=== PATIENT | female | born 1990 | race Asian ===

== ENCOUNTER 2021-08-08 08:14 | Outpatient (CLI) | payer OTHER ==
[2021-08-09 07:07] LABS: ESTRADIOL SERUM 20.6 pg/mL (.); LUTEINIZING HORMONE 10.2 mIU/mL (.)
== END 2021-08-08 21:53 | disposition home or self-care (01) ==
LOC: MLB 08:14
PROVIDERS: ATTEND Specialist
DX: N92.6 Irregular menstruation, unspecified (principal)
CPT/HCPCS: 36415; 82670; 83001; 83002

== ENCOUNTER 2021-12-26 08:07 | Outpatient (CLI) | payer OTHER | END 2021-12-26 20:00 | disposition home or self-care (01) | LOC: MLB 08:07 | PROVIDERS: ATTEND Specialist | DX: Z34.00 Encounter for supervision of normal first pregnancy, unspecified trimester (principal) | CPT/HCPCS: 36415; 86702; 86886; 86900; 86901 ==

== ENCOUNTER → 2022-03-17 | Outpatient (CLI) | payer OTHER ==
[2022-03-17 11:51] LABS: GLUCOSE,FASTING GESTATIONAL 82 mg/dL (70-110)
[2022-03-18 09:28] LABS: BASOPHILS % (AUTO) 0.3 % (0.0-2.0); EOSINOPHILS # (AUTO) 0.1 K/uL (0-0.4); EOSINOPHILS % (AUTO) 1.8 % (0.0-4.0); HEMATOCRIT 37.8 % (36-48); HEMOGLOBIN 13.1 g/dL (12.0-16.0); LYMPHOCYTES # (AUTO) 1.5 K/uL (2.5-16.5); LYMPHOCYTES % (AUTO) 19.2 % (20.5-51.1); MEAN CORPUSCULAR HEMOGLOBIN 31 pg (27-31); MEAN CORPUSCULAR HGB CONC 35 g/dL (33-37); MEAN CORPUSCULAR VOLUME 90.6 fL (80-94); MONOCYTES # (AUTO) 0.6 K/uL (0.8-1.0); MONOCYTES % (AUTO) 7.4 % (1.7-9.3); NEUTROPHILS # (AUTO) 5.7 K/uL (1.8-7.7); NEUTROPHILS % (AUTO) 71.3 % (42.2-75.2); PLATELET COUNT (AUTO) 216 K/uL (140-450); RED BLOOD CELL COUNT(AUTO) 4.18 MIL/uL (4.20-5.40); RED CELL DISTRIBUTION WIDTH 13.2 % (11.6-13.7)
== END | disposition home or self-care (01) ==
LOC: MLB 09:45
PROVIDERS: ATTEND Specialist
DX: Z34.82 Encounter for supervision of other normal pregnancy, second trimester (principal)
CPT/HCPCS: 36415; 82951; 85025; 86592

== ENCOUNTER 2022-05-24 12:03 | Observation (INO) | payer OTHER ==
[~2022-05-24] VITALS: Ht 167.6 cm; Wt 87.1 kg
[2022-05-24] MEDS ORDERED: PNV91TAB8 PO (12:25)
[2022-05-24 13:41] VITALS: BP 114/76
== END 2022-05-24 14:15 | disposition home or self-care (01) ==
LOC: MLD 12:03
PROVIDERS: ADMIT Specialist; ATTEND Specialist
DX: O42.92 Full-term premature rupture of membranes, unspecified as to length of time between rupture and onset of labor (principal); Z20.822 Contact with and (suspected) exposure to COVID-19; Z3A.39 39 weeks gestation of pregnancy
CPT/HCPCS: 59025; 76805; 81000; 87426; G0378; Q0092

== ENCOUNTER 2022-06-05 17:20 | Inpatient (IN) | payer OTHER ==
[~2022-06-05] VITALS: Ht 167.6 cm; Wt 90.7 kg
[~2022-06-05 17:20] MED LIST: PNV91TAB8 PO
[2022-06-05] MEDS ORDERED: METHYLERGONOVINE 0.2 MG/ML AMP IM PRN (20:00)
[2022-06-05] MEDS ORDERED: CARBOPROST 250 MCG/ML AMP IM PRN (20:00)
[2022-06-05] MEDS ORDERED: LACTATED RINGERS 1,000 ML IV SCH (20:00)
[2022-06-05] MEDS ORDERED: NALBUPHINE 10 MG/ML AMP IVP PRN (20:20)
[2022-06-05] MEDS ORDERED: NALBUPHINE 10 MG/ML AMP ONE (20:21)
[2022-06-05] MEDS ORDERED: OXYTOCIN 20 UNITS/LR PREMIX 1,000 ML IV ONE (20:21)
[2022-06-05] MEDS ORDERED: LIDOCAINE 1% 500 MG/50 ML VIAL ONE (20:21)
[2022-06-05 20:33] LABS: BASOPHILS % (AUTO) 0.3 % (0.0-2.0); EOSINOPHILS # (AUTO) 0.1 K/uL (0-0.4); EOSINOPHILS % (AUTO) 0.4 % (0.0-4.0); HEMATOCRIT 37.9 % (36-48); HEMOGLOBIN 12.8 g/dL (12.0-16.0); LYMPHOCYTES # (AUTO) 1.8 K/uL (2.5-16.5); LYMPHOCYTES % (AUTO) 11.9 % (20.5-51.1); MEAN CORPUSCULAR HEMOGLOBIN 31 pg (27-31); MEAN CORPUSCULAR HGB CONC 34 g/dL (33-37); MEAN CORPUSCULAR VOLUME 90.8 fL (80-94); MONOCYTES # (AUTO) 1.2 K/uL (0.8-1.0); MONOCYTES % (AUTO) 7.8 % (1.7-9.3); NEUTROPHILS # (AUTO) 11.7 K/uL (1.8-7.7); NEUTROPHILS % (AUTO) 79.6 % (42.2-75.2); PLATELET COUNT (AUTO) 194 K/uL (140-450); RED BLOOD CELL COUNT(AUTO) 4.18 MIL/uL (4.20-5.40); RED CELL DISTRIBUTION WIDTH 13.2 % (11.6-13.7); WHITE BLOOD COUNT (AUTO) 14.7 K/uL (4.8-10.8)
[2022-06-05 20:35] LABS: APPEARANCE,URINE SL CLOUDY (CLEAR); BILIRUBIN,URINE NEGATIVE (NEGATIVE); BLOOD, URINE 3+ (NEGATIVE); COLOR,URINE RED (YELLOW); LEUKOCYTE ESTERASE ,URINE 3+ (NEGATIVE); NITRITE, URINE NEGATIVE (NEGATIVE); UGLUCOSE NEGATIVE (NEGATIVE)
[2022-06-05 20:45] LABS: PROTHROMBIN TIME 8.8 secs (10.8-13.4)
[2022-06-05 20:50] LABS: ALBUMIN 2.6 g/dL (3.4-5.0); ANION GAP 16.4 (8-16); CARBON DIOXIDE 18.2 mmol/L (21-32); CREATININE 0.6 mg/dL (0.6-1.3); POTASSIUM 3.6 mmol/L (3.5-5.1); TOTAL BILIRUBIN 0.2 mg/dL (0.0-1.0)
[2022-06-05 20:54] LABS: RBC,URINE 20-50 /HPF (0-5)
[2022-06-05 20:57] LABS: OTHER CASTS, URINE None Seen /LPF (None Seen)
[2022-06-05 22:13] VITALS: BP 120/71
[2022-06-06] MEDS ORDERED: METHYLERGONOVINE 0.2 MG TAB PO PRN (00:05)
[2022-06-06] MEDS ORDERED: BENZOCAINE/MENTHOL 20%-0.5% 60 GM CAN TP PRN (00:05)
[2022-06-06] MEDS ORDERED: MEASLES, MUMPS, AND RUBELLA 1 VIAL SQVAC ONE (00:05)
[2022-06-06] MEDS ORDERED: METHYLERGONOVINE 0.2 MG/ML AMP IM PRN (00:05)
[2022-06-06] MEDS ORDERED: SODIUM PHOSPHATE 118 ML ENEM RC PRN (00:05)
[2022-06-06] MEDS ORDERED: TEMAZEPAM 15 MG CAP PO PRN (00:05)
[2022-06-06] MEDS ORDERED: oxyCODONE/APAP 5/325 MG 1 TAB TAB PO PRN ×2 (00:05)
[2022-06-06 06:42] LABS: HEMATOCRIT 31.2 % (36-48); HEMOGLOBIN 10.5 g/dL (12.0-16.0)
--- NOTE | 2022-06-06 08:48 | NUR ---
PATIENT HAS BEEN SCREENED AND CATEGORIZED LOW NUTRITION RISK. PATIENT WILL BE SEEN WITHIN 7 DAYS OF ADMISSION. 06/12/[address]
[2022-06-06] MEDS ORDERED: DOCUSATE SOD/SENNA 50/8.6 MG 1 TAB PO SCH (21:00)
[2022-06-06] MEDS ORDERED: bisacodyL 5 MG TABEC PO SCH (21:00)
== END 2022-06-07 09:27 | disposition home or self-care (01) | DRG 807 ==
LOC: MFCC 17:20 → UNDOADMIN 17:20 → MFCC 19:20
PROVIDERS: ADMIT Specialist; ATTEND Specialist
PROC: 10D07Z6 Extraction of Products of Conception, Vacuum, Via Natural or Artificial Opening (ICD-10-PCS; principal; 2022-06-06)
PROC: 0HQ9XZZ Repair Perineum Skin, External Approach (ICD-10-PCS; 2022-06-06)
DX: O69.81X0 Labor and delivery complicated by cord around neck, without compression, not applicable or unspecified (principal); Z37.0 Single live birth; Z20.822 Contact with and (suspected) exposure to COVID-19; O70.0 First degree perineal laceration during delivery; Z3A.39 39 weeks gestation of pregnancy
CPT/HCPCS: 36415; 80053; 81001; 85018; 85025; 85610; 85730; 86592; 86886; 86900; 86901; 87086; 87340; J2001; J2300; J2590